=== PATIENT | female | born 1995 | race Caucasian/White ===

== ENCOUNTER 2016-12-22 21:19 | Emergency (ER) | payer OTHER ==
[~2016-12-22] VITALS: Ht 160 cm; Wt 75.1 kg
[~2016-12-22 21:19] MED LIST: AMOXICILLIN875 MG PO; ATARAX,VISTARIL25 MG PO; AUGMENTIN875 MG PO; BACTERICIN30 GM TP; BACTRIM,SEPT1 TABLET PO; CLONAZEPAM1 MG PO; EPIPEN ADU0.3 MG/0.3 IM; FLEXERIL10 MG PO; HUMULIN; MACROBID100 MG PO; MOTRIN600 MG PO; NOVOLIN,HU100 UNITS1 SC; NOVOLOG MI100 UNIT/M; NOVOLOG MI100 UNIT/M SC; PREDNISONE20 MG PO; PROZAC; REGLAN10 MG PO; TRAZODONE HCL50 MG PO; VITAMIN D5000 UNI1 PO; ZOFRAN ODT4 MG PO; ZOFRAN ODT8 MG PO
[2016-12-22] MEDS ORDERED: PREDNISONE20 MG PO (22:47)
[2016-12-22] MEDS ORDERED: PEPCID20 MG PO (22:47)
[2016-12-22] MEDS ORDERED: EPIPEN ADU0.3 MG/0.3 IM (22:47)
[2016-12-22] MEDS ORDERED: BENADRYL50 MG PO (22:47)
[2016-12-22 23:45] VITALS: BP 128/86
== END 2016-12-22 23:48 | disposition home or self-care (01) ==
LOC: EME 21:19
DX: T78.40XA Allergy, unspecified, initial encounter (principal); J45.909 Unspecified asthma, uncomplicated; E11.9 Type 2 diabetes mellitus without complications; Z79.4 Long term (current) use of insulin
CPT/HCPCS: 99281; 99285; J1200; J7030; J7512; S0028